=== PATIENT | male | born 1960 | race American Indian/Alaskan Native ===

== ENCOUNTER 2016-07-11 09:12 | Emergency (ER) | payer BC ==
[2016-07-11 09:19] VITALS: BP 125/72
--- NOTE | 2016-07-11 11:18 | XRay Report ---
RIGHT FOOT THREE VIEWS: 07/11/16 09:59:00 CLINICAL: Trauma and pain. Dropped a couch onto foot. FINDINGS: No fracture or dislocation. Normal soft tissues. No soft tissue air or foreign body. IMPRESSION: Normal.
[2016-07-11] MEDS ORDERED: MOTRIN PO ONE (11:42)
--- NOTE | 2016-07-11 12:34 | Emergency Department Report ---
Entered by MAT CHO, acting as scribe for LYLE KELLY PA. ED Lower Extremity HPI - General Chief Complaint: Extremity Injury, Lower Stated Complaint: FOOT PAIN Time Seen by Provider: 07/11/16 09:54 Source: patient, family Mode of arrival: Ambulatory Limitations: No Limitations - History of Present Illness Initial Comments: 56 year old male with no significant PMHx presents to the ED c/o right foot pain that began 3 days ago. Patient states that he dropped a love seat sofa on his right foot 3 days ago. Rates pain a 10/10 in severity and describes the pain as throbbing in quality. Associated symptoms includes right foot swelling that began this morning, but he denies numbness and tingling. Uses tobacco products and consumes EtOH occasionally. NKDA. LAKHANI Complaint: foot injury (right) Onset/Timin -: days(s) Injury: Foot: Right Type of Injury: other (dropped love seat sofa on right foot) Place: home Severity: moderate Severity scale (0 -10): 10 Improves With: immobilization Worsens With: movement, palpation Context: other (dropped love seat sofa on right foot) Other Symptoms: other (right foot swelling) Associated Symptoms: swelling (right foot), able to partially bear weight. denies: numbness, tingling - Related Data Previous Rx's Medication Instructions Recorded Last Taken Type Ibuprofen [Motrin] 600 mg PO Q8H PRN #15 tablet 07/11/16 Unknown Rx Allergies Allergy/AdvReac Type Severity Reaction Status Date / Time No Known Allergies Allergy Unverified 07/11/16 09:15 ED Review of Systems Comment: All other systems reviewed and negative Constitutional: denies: chills, fever, other (tingling) ENT: denies: throat pain Respiratory: no symptoms reported Cardiovascular: denies: chest pain, palpitations, edema, syncope Gastrointestinal: denies: abdominal pain, nausea, vomiting Musculoskeletal: joint swelling (right foot), arthralgia, other (right foot pain ). denies: back pain Skin: denies: rash Neurological: denies: headache, numbness, paresthesias, confusion, abnormal gait , vertigo ED Past Medical Hx - Past Medical History Previous Medical History?: No - Surgical History Past Surgical History?: No - Family History Family history: no significant - Social History Smoking Status: Current Every Day Smoker Substance Use Type: Alcohol, Marijuana - Medications Home Medications: Home Medications Medication Instructions Recorded Confirmed Last Taken Type Ibuprofen [Motrin] 600 mg PO Q8H PRN #15 tablet 07/11/16 Unknown Rx ED Physical Exam - General Limitations: No Limitations General appearance: alert, in no apparent distress - Head Head exam: Present: atraumatic, normocephalic - Eye Eye exam: Present: normal appearance, PERRL, EOMI. Absent: periorbital swelling , periorbital tenderness Pupils: Present: normal accommodation - ENT ENT exam: Present: normal exam, mucous membranes moist - Neck Neck exam: Present: normal inspection, full ROM. Absent: tenderness, lymphadenopathy - Respiratory Respiratory exam: Absent: normal lung sounds bilaterally, respiratory distress, wheezes, rales, rhonchi, chest wall tenderness - Cardiovascular Cardiovascular Exam: Present: regular rate, normal rhythm, normal heart sounds, other (S1/S2). Absent: systolic murmur, diastolic murmur, rubs, gallop - GI/Abdominal GI/Abdominal exam: Present: soft, normal bowel sounds. Absent: distended, tenderness, guarding, rebound, rigid - Extremities Exam Extremities exam: Present: normal inspection, tenderness (lateral right foot from distal), normal capillary refill. Absent: full ROM (limited due to right foot pain), pedal edema, joint swelling, calf tenderness - Expanded Lower Extremity Exam Right Hip exam: Present: normal inspection, full ROM, pelvic stability. Absent: tenderness, swelling, abrasion, laceration, ecchymosis, deformity, crepidus, dislocation, erythema, external rotation, internal rotation, shortening Upper Leg exam: Present: normal inspection, full ROM. Absent: tenderness, abrasion, laceration, ecchymosis, deformity, crepidus, dislocation, erythema Knee exam: Present: normal inspection, full ROM, full knee extension. Absent: tenderness, swelling, abrasion, laceration, ecchymosis, deformity, crepidus, dislocation, erythema, effusion, pain w/ pronation/supination Lower Leg exam: Present: normal inspection, full ROM. Absent: tenderness, swelling, abrasion, laceration, ecchymosis, deformity, crepidus, dislocation, erythema, palpable cord, Dorcas's sign Ankle exam: Present: normal inspection, full ROM. Absent: tenderness, swelling , abrasion, laceration, ecchymosis, deformity, crepidus, dislocation, erythema Foot/Toe exam: Present: normal inspection, tenderness (lateral right foot from distal to proximal), swelling (mild swelling on right lateral foot). Absent: full ROM (limited to right foot pain), abrasion, laceration, ecchymosis, deformity, crepidus, erythema, amputation, puncture wound, foreign body, calcaneal tenderness, tenderness at base of 5th metatarsal, nail avulsion, subungual hematoma Neuro vascular tendon exam: Present: no vascular compromise. Absent: pulse deficit, abnormal cap refill, motor deficit, sensory deficit, tendon deficit, extremity cold to touch, pallor, abnormal 2-point discrimination, decreased fine /light touch, foot drop, peroneal nerve deficit, significant pain with passive ROM of distal joint Gait: Positive: observed and limited by pain - Back Exam Back exam: Present: normal inspection, full ROM. Absent: tenderness, CVA tenderness (R), CVA tenderness (L), muscle spasm, paraspinal tenderness, vertebral tenderness, rash noted - Neurological Exam Neurological exam: Present: alert, oriented X3, normal gait, reflexes normal. Absent: motor sensory deficit - Expanded Neurological Exam Expanded Motor strength exam: RUE: 5, LUE: 5, RLE: 5, LLE: 5 DTR: bicep (R): 2+, bicep (L): 2+, tricep (R): 2+, tricep (L): 2+, knee (R): 2+ , knee (L): 2+, ankle (R): 2+, ankle (L): 2+ Best Eye Response ([place]): (4) open spontaneously Best Motor Response ([place]): (6) obeys commands Best Verbal Response ([place]): (5) oriented [place] Total: 15 - Psychiatric Psychiatric exam: Present: normal affect, normal mood - Skin Skin exam: Present: warm, dry, intact. Absent: rash, erythema, abrasion, ecchymosis ED Course Vital Signs 07/11/16 07/11/16 09:16 11:45 Temperature 97.9 F Pulse Rate 62 Respiratory 20 18 Rate Blood Pressure 125/72 O2 Sat by Pulse 99 Oximetry - Reevaluation(s) Reevaluation #1: 07/11/16 12:28 Patient given Motrin 800 mg by mouth in emergency room for pain - Orthopedic Splinting/Casting Injury #1 Side: right Lower Extremity Injury Location: foot Lower Extremity Immobilizer: Alverto wrap ED Lower Extremity MDM - Radiology Data Radiology results: report reviewed X-ray of right foot revealed no acute bony abnormality - Medical Decision Making ED course: See procedure note for details on splinting. X-ray of right foot revealed no acute bony abnormality. Patient given Motrin 800 mg by mouth in emergency room for right foot pain. Diagnosis Right foot injury with contusion. Patient discharged home with prescription for Motrin and Rice therapy. I discussed with him that he needs to rest for 72 hours and to follow- up with orthopedic doctor if he still continues to have pain after 72 hours. ED Disposition Clinical Impression: Arthralgia of right foot Right foot injury Qualifiers: Encounter type: initial encounter Qualified Code(s): S99.921A - Unspecified injury of right foot, initial encounter Contusion of right foot Qualifiers: Encounter type: initial encounter Qualified Code(s): S90.31XA - Contusion of right foot, initial encounter Disposition: DISCHARGED TO HOME OR SELFCARE Is pt being admited?: No Does the pt Need Aspirin: No Condition: Stable Instructions: Arthralgia (ED), Foot Contusion (ED) Additional Instructions: Rest, ice, compress and elevate the area for 72 hours Follow-up with orthopedic doctor a few foot is not better in 72 hours. Take medication as prescribed. Prescriptions: Ibuprofen [Motrin] 600 mg PO Q8H PRN #15 tablet PRN Reason: Pain Referrals: JACOB PEARSON MD [Staff Physician] - 3-5 Days Forms: Work/School Release Form(ED) This documentation as recorded by the MARQUIS chavez JASMINE,accurately reflects the service I personally performed and the decisions made by me,LYLE KELLY PA.
== END 2016-07-11 12:49 | disposition home or self-care (01) ==
LOC: ED 09:12
DX: S90.31XA Contusion of right foot, initial encounter (principal); F17.200 Nicotine dependence, unspecified, uncomplicated; F12.90 Cannabis use, unspecified, uncomplicated; W04.XXXA Fall while being carried or supported by other persons, initial encounter; Y93.89 Activity, other specified; Y99.8 Other external cause status; Y92.009 Unspecified place in unspecified non-institutional (private) residence as the place of occurrence of the external cause